=== PATIENT | female | born 1975 | race Caucasian/White ===

== ENCOUNTER 2016-05-30 10:05 | Outpatient (CLI) | payer OTHER ==
--- NOTE | 2016-05-30 10:58 | Diagnostic Imaging Report ---
[facility] [id number] Formerly [facility], [facility] [address] 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 SMOKER Findings: No comparison studies Heart is normal in size. There is no focal consolidation, pleural effusion or pneumothorax Slightly increased bronchovascular markings right lower lobe No acute osseous pathology Impression: There is no focal consolidation or pleural effusion Slightly increased bronchovascular markings right lower lobe, questionable developing infiltrate versus related to slight patient rotation. Electronically signed on May 30, 2016 10:32:23 AM MEAT GRADING MACHINE OPERATOR by: Rachna BLAS
== END 2016-05-30 10:15 ==
LOC: RAD 10:05
PROVIDERS: ATTEND Family Medicine
DX: Z11.1 Encounter for screening for respiratory tuberculosis (principal)
CPT/HCPCS: 71020